=== PATIENT | male | born 1955 | race Caucasian/White ===

== ENCOUNTER 2020-11-18 11:30 | Inpatient (IN) | payer OTHER ==
[~2020-11-18] VITALS: Ht 165.1 cm; Wt 69.4 kg
[2020-11-18] MEDS ORDERED: PEPCID AC20 MG PO (15:12)
[2020-11-18] MEDS ORDERED: LIPITOR20 MG PO (15:12)
[2020-11-18] MEDS ORDERED: TAMS0.4C PO (15:12)
[2020-11-18] MEDS ORDERED: PROSCAR5 MG PO (15:12)
[2020-11-18] MEDS ORDERED: DICY20TA PO (15:13)
[2020-11-18] MEDS ORDERED: GAS RELIEF180 MG PO (15:14)
[2020-11-25] MEDS ORDERED: CLONAZEPAM0.5 MG (08:07)
[2020-11-25] MEDS ORDERED: PANTOPRAZOLE SO40 MG (08:07)
[2020-11-25] MEDS ORDERED: CITALOPRAM HBR10 MG (08:07)
== END 2020-11-26 16:25 | disposition home or self-care (01) | DRG 331 ==
LOC: O/R 11-24 05:50 → SURH 11-24 05:50 → EDBD 11-24 11:30 → SURH 11-24 11:30
PROVIDERS: ADMIT Colon & Rectal Surgery; ATTEND Colon & Rectal Surgery
PROC: 3E0F7SF Introduction of Other Gas into Respiratory Tract, Via Natural or Artificial Opening (ICD-10-PCS; 2020-11-24)
PROC: 0DTN0ZZ Resection of Sigmoid Colon, Open Approach (ICD-10-PCS; principal; 2020-11-24 09:00)
DX: K57.30 Diverticulosis of large intestine without perforation or abscess without bleeding (principal); K57.32 Diverticulitis of large intestine without perforation or abscess without bleeding; N40.0 Benign prostatic hyperplasia without lower urinary tract symptoms; Z20.822 Contact with and (suspected) exposure to COVID-19